=== PATIENT | male | born 1975 | race Caucasian/White ===

== ENCOUNTER 2016-12-23 10:20 | Emergency (ER) | payer MEDICAID ==
[2016-12-23 13:30] VITALS: BP 135/60
== END 2016-12-23 13:31 | disposition home or self-care (01) ==
LOC: ED 10:20
DX: R07.89 Other chest pain (principal); R03.0 Elevated blood-pressure reading, without diagnosis of hypertension; Z88.8 Allergy status to other drugs, medicaments and biological substances